=== PATIENT | male | born 1950 | race Hispanic/Latino ===

== ENCOUNTER → 2019-05-03 | Outpatient (RCR) | payer MEDICARE ==
[~2019-05-03] MED LIST: IOPAMIDOL 370 MG/ML 200 ML INFUS..BTL INJ ONE; LIDOCAINE VISC 2% SOLN 15 ML UDC ONE; LIDOCAINE/PRILOCAINE 2.5-2.5% KIT ONE; MINERAL OIL/PETROLAT/GLYCERI 2OZ CRM ONE; MINERAL OIL/PETROLAT/GLYCERI 6OZ BTL ONE; SODIUM CHLORIDE 0.9% 50ML 50 ML ONE
== END ==
LOC: WCC 04-13 09:42
PROVIDERS: ATTEND Family Medicine Adult Medicine
DX: I87.331 Chronic venous hypertension (idiopathic) with ulcer and inflammation of right lower extremity (principal); L97.311 Non-pressure chronic ulcer of right ankle limited to breakdown of skin; I87.2 Venous insufficiency (chronic) (peripheral); R60.0 Localized edema
CPT/HCPCS: 11042 ×2; 29581 ×5; 87071; 87075; 87186; 87205; 99212; 99213 ×3; Q9967

== ENCOUNTER 2019-05-10 11:12 | Outpatient (RCR) | payer MEDICARE ==
[~2019-05-10 11:12] MED LIST changes: -IOPAMIDOL 370 MG/ML 200 ML INFUS..BTL INJ ONE; -LIDOCAINE VISC 2% SOLN 15 ML UDC ONE; -LIDOCAINE/PRILOCAINE 2.5-2.5% KIT ONE; -MINERAL OIL/PETROLAT/GLYCERI 2OZ CRM ONE; +MUPIROCIN 2% OINT 22 GM TUBE ONE; -SODIUM CHLORIDE 0.9% 50ML 50 ML ONE
[2019-05-10] MEDS ORDERED: MUPIROCIN 2% OINT 22 GM TUBE ONE (18:48)
== END 2019-06-02 ==
LOC: WCC 11:12
PROVIDERS: ATTEND Family Medicine Adult Medicine
DX: I87.331 Chronic venous hypertension (idiopathic) with ulcer and inflammation of right lower extremity (principal); L97.311 Non-pressure chronic ulcer of right ankle limited to breakdown of skin; R60.0 Localized edema; I87.2 Venous insufficiency (chronic) (peripheral); D18.01 Hemangioma of skin and subcutaneous tissue; L98.8 Other specified disorders of the skin and subcutaneous tissue; D18.09 Hemangioma of other sites; B96.89 Other specified bacterial agents as the cause of diseases classified elsewhere